=== PATIENT | male | born 1975 | race Asian ===

== ENCOUNTER 2022-05-14 10:21 | Outpatient (REF) | payer OTHER, SELFPAY ==
[2022-05-14 11:15] LABS: Estimated Average Glucose 120 mg/dL; Hemoglobin A1c % 5.8 %
[2022-05-14 11:57] LABS: Alanine Aminotransferase 25 U/L (0-40); Albumin Level 4.3 g/dL (3.5-5.0); Alkaline Phosphatase 63 U/L (39-117); Aspartate Amino Transferase 19 U/L (5-37); Bilirubin Direct 0.2 mg/dL (0.0-0.5); Bilirubin Total 0.6 mg/dL (0.0-1.0); Cholesterol 168 mg/dL; HDL Cholesterol 38 mg/dL; LDL Cholesterol Calculated 114 mg/dl; Total Protein 7.6 g/dL (6.5-8.0); Triglycerides 84 mg/dL
[2022-05-14 12:00] LABS: Ferritin 68 ng/mL (20-250)
== END 2022-05-14 10:22 | disposition home or self-care (01) ==
LOC: HO.LAB 10:21
PROVIDERS: PCP Internal Medicine; Visit Provider Hospitalist
DX: Z00.01 Encounter for general adult medical examination with abnormal findings (principal); K62.5 Hemorrhage of anus and rectum
CPT/HCPCS: 36415; 80061; 80076; 82728; 83036

== ENCOUNTER 2022-06-18 12:55 | Day surgery (SDC) | payer OTHER, SELFPAY ==
--- NOTE | 2022-06-18 13:09 | MHC.SHP ---
Pre-Procedural Eval Section A Date of Service: 06/18/22 Section B Chief Complaint: rectal bleeding Details of Present Illness: pt has noted on and off rectal bleeding Relevant Family History (Specify if Yes): No Relevant Social History: None Present Medications: see Short Stay Collaborative assessment Medical History: Significant History (seasonal allergies ) History of Previous Operations: No relevant previous surgery Allergies: Allergies Allergy/AdvReac Type Severity Reaction Status Date / Time Penicillins Allergy Rash Verified 06/18/22 13:09 Review of Systems Sugical H&P ROS: Negative: Constitution, Cardiovascular, Respiratory, Neurological, Psychiatric, Hem-Onc, Allergic/Immunologic, Gastrointestinal, Genitourinary, Musculoskeletal, Integumentary, Endocrine and Eyes/Ears/Nose/Throat Exam Surgical H&P Exam: Normal: HEENT, Normal: Heart, Normal: Lungs, Normal: Extremities, Normal: Abdomen, Normal: Skin and Normal: Neurological Plan Diagnosis/Plan: Unchanged I have reviewed the history and physical and performed a pertinent physical examination on my patient. No changes have occurred unless specified. Time Spent With Patient Time: Total time managing care of this patient today ____ minutes.
[2022-06-18 13:29] VITALS: BP 132/89; PULSE 96; RESP 20; TEMP 36.4; O2SAT 97; BMI 25.8
--- NOTE | 2022-06-18 13:35 | W.PM.OPN ---
Operative Note Operative Note Date of Service: 06/18/22 Narrative: Operative Information Procedure Description: Colonoscopy Indication: rectal bleeding Anesthesia: MAC COLONOSCOPY Instrument: Olympus variable stiffness ADULT scope 190L Colonoscopy Monitoring: Vital signs and clinical assessment, continuous EKG monitoring, Pulse oximetry, Carbon Dioxide monitoring and blood pressure monitoring were done throughout the procedure. Colon withdrawal time was 8 minutes. Procedure: The patient was placed in the left lateral decubitis position and pre-procedure medications were administered. After a digital rectal examination of the ano-rectum, the video colonoscope was inserted into the rectum and advanced through the colon to the cecum/TI. The colonoscope was slowly withdrawn in a retrograde panoramic fashion and the colon mucosa was carefully examined including a retroflexed view of the rectum. Findings and interventions are described below. Procedure Difficulty: Findings: Terminal Ileum-normal Cecum:normal right sided retroflexion-nml Ascending Colon: normal Transverse Colon -normal Descending Colon:normal Sigmoid Colon: normal Rectum: Retroflexion with medium sized internal hemorrhoids, grade I Anorectum - normal Colon preparation: [place] Bowel Preparation Scale Right colon; 2 Transverse colon: 3 Left colon; 3 (0 = Unprepared colon segment with mucosa not seen due to solid stool that cannot be cleared. 1 = Portion of mucosa of the colon segment seen, but other areas of the colon segment not well seen due to staining, residual stool and/or opaque liquid. 2 = Minor amount of residual staining, small fragments of stool and/or opaque liquid, but mucosa of colon segment seen well. 3 = Entire mucosa of colon segment seen well with no residual staining, small fragments of stool or opaque liquid) Impression and Post Procedure Diagnosis: internal hemorrhoids Plan: High fiber diet leaflet Avoid straining at stool, epsom salts and sitz bath, anusol supps or cream Repeat Colonoscopy in 10 years or earlier if clinically indicated Above findings were reviewed with the patient and relevant handouts were provided if indicated.
[2022-06-18 14:05] VITALS: BP 79/41; PULSE 93; RESP 16; TEMP 36.7; O2SAT 94
[2022-06-18 14:10] VITALS: BP 89/47; PULSE 83; RESP 18; O2SAT 95
[2022-06-18 14:20] VITALS: BP 87/54; PULSE 83; RESP 18; O2SAT 95
[2022-06-18 14:35] VITALS: BP 102/63; PULSE 79; RESP 18; TEMP 37.1; O2SAT 96
== END 2022-06-18 15:00 | disposition home or self-care (01) ==
PROVIDERS: PCP Internal Medicine Gastroenterology; Visit Provider Internal Medicine Gastroenterology
PROC: 0DJD8ZZ Inspection of Lower Intestinal Tract, Via Natural or Artificial Opening Endoscopic (ICD-10-PCS; CPT 45378; principal; 2022-06-18 13:30)
DX: K62.5 Hemorrhage of anus and rectum (principal); K64.0 First degree hemorrhoids; Z88.0 Allergy status to penicillin
CPT/HCPCS: 45378

== ENCOUNTER 2024-07-10 10:23 | Outpatient (REF) | payer OTHER, SELFPAY ==
[2024-07-10 10:39] LABS: MANUAL DIFF FLAG NO
[2024-07-10 11:20] LABS: Basophils Percent Auto 0.5 % (0-2); Eosinophils Absolute Auto 0.2 X10*3/uL (0.0-0.4); Eosinophils Percent Auto 3.2 % (0-4); Hematocrit 44.3 % (42.0-52.0); Imm Gran Abs Auto 0.01 X10*3/uL (0.00-0.03); Imm Gran Pct Auto 0.2 % (0.0-0.4); Lymphocytes Absolute Auto 2.4 X10*3/uL (1.2-4.9); Lymphocytes Percent Auto 43.9 % (20-40); Mean Corpuscular HGB Conc 31.6 g/dl (31.0-36.0); Mean Corpuscular Hemoglobin 24.9 pg (27.0-33.0); Mean Corpuscular Volume 78.8 fL (80.0-98.0); Mean Platelet Volume 10.2 fL (9.4-12.4); Monocytes Absolute Auto 0.4 X10*3/uL (0.1-1.2); Monocytes Percent Auto 6.5 % (2-11); Neutrophils Absolute Auto 2.5 x10*3/uL (2.0-8.3); Neutrophils Percent Auto 45.7 % (45-73); Platelet Count 263 X10*3/uL (160-400); Red Blood Count 5.62 X10*6/uL (4.60-5.80); Red Cell Distribution Width 13.4 % (11.0-16.0); White Blood Count 5.5 X10*3/uL (4.8-10.8)
[2024-07-10 11:25] LABS: Estimated Average Glucose 123 mg/dL; Hemoglobin A1C 149.8286 umol/L; Hemoglobin A1c % 5.9 % (<6.0)
[2024-07-10 11:48] LABS: Alanine Aminotransferase 21 U/L (0-40); Albumin Level 4.4 g/dL (3.5-5.0); Alkaline Phosphatase 62 U/L (39-117); Anion Gap 10 (12-20); Aspartate Amino Transferase 20 U/L (5-37); Bilirubin Direct 0.2 mg/dL (0.0-0.5); Bilirubin Total 0.6 mg/dL (0.0-1.0); Blood Urea Nitrogen 15 mg/dL (9-16); Calcium 9.4 mg/dL (8.4-10.2); Carbon Dioxide 26 mmol/L (22-29); Chloride 107 mmol/L (96-108); Cholesterol 167 mg/dL (<200); Estimated Glomerular Filt Rate > 60; Glucose Fasting 90 mg/dL (60-99); HDL Cholesterol 38 mg/dL (>40); LDL Cholesterol Calculated 112 mg/dL (<100); Potassium 4.3 mmol/L (3.3-5.1); Sodium 139 mmol/L (135-145); Total Protein 7.7 g/dL (6.5-8.0); Triglycerides 89 mg/dL (<150)
== END 2024-07-10 10:24 | disposition home or self-care (01) ==
LOC: HO.LAB 10:23
PROVIDERS: Visit Provider Internal Medicine
DX: Z00.00 Encounter for general adult medical examination without abnormal findings (principal); Z13.1 Encounter for screening for diabetes mellitus; Z13.6 Encounter for screening for cardiovascular disorders
CPT/HCPCS: 36415; 80048; 80061; 80076; 83036; 85025